=== PATIENT | female | born 1960 | race African-American/Black ===

== ENCOUNTER 2021-01-20 14:07 | Outpatient (CLI) | payer OTHER ==
[2021-01-20 15:19] LABS: Hemoglobin 10.1 g/dL (12.0-15.5); Mean Corpuscular Hemoglobin 28.5 pg (27.0-33.0); Mean Corpuscular Volume 89.3 fl (81.6-98.3); Mean Platelet Volume 12.6 fl (7.4-10.4); Platelet Count 155 10x3/uL (150-450); RBC Distribution Width 14.8 % (11.5-14.5); Red Blood Cell (RBC) Count 3.54 10x6/uL (3.90-5.03); White Blood Cell (WBC) Count 5.5 10x3/uL (3.5-10.5)
[2021-01-20 15:27] LABS: Anion Gap 11 mmol/L (10-20); BUN (Urea Nitrogen) 12 mg/dL (9.8-20.1); Calc. Creatinine Clearance 0 mL/min (70-130); Calcium 9.7 mg/dL (7.8-10.44); Carbon Dioxide 27 mmol/L (23-31); Chloride 100 mmol/L (98-107); Glucose 102 mg/dL (80-115); Sodium 134 mmol/L (136-145)
[2021-01-21 02:23] LABS: SARS-CoV-2 PCR by NAA Not Detected (NotDetected)
== END 2021-01-20 14:08 | disposition home or self-care (01) ==
LOC: LABBT 14:07
PROVIDERS: ATTEND Neurological Surgery
DX: Z01.818 Encounter for other preprocedural examination (principal); S22.009A Unspecified fracture of unspecified thoracic vertebra, initial encounter for closed fracture; S32.009A Unspecified fracture of unspecified lumbar vertebra, initial encounter for closed fracture; M41.9 Scoliosis, unspecified; Z20.822 Contact with and (suspected) exposure to COVID-19
CPT/HCPCS: 80048; 85027; 87635; 93005; 93010; U0003; U0005

== ENCOUNTER 2021-01-25 08:17 | Inpatient (IN) | payer OTHER ==
[2021-01-22 12:29] VITALS: BMI 23.1
[2021-01-25] MEDS ORDERED: Fentanyl 100 MCG/2 ML VIAL ONE ×4 (12:14→15:32)
[2021-01-25] MEDS ORDERED: PHENYLEPHRINE-NS 100 MCG/ML 10 ML SYRINGE ONE (12:55)
[2021-01-25] MEDS ORDERED: Dexamethasone 20 MG/5 ML VIAL ONE (12:55)
[2021-01-25] MEDS ORDERED: Glycopyrrolate 0.2 MG/ML 5 ML SYRINGE ONE (12:55)
[2021-01-25] MEDS ORDERED: Lidocaine 1% PF 5 ML VIAL ONE (12:55)
[2021-01-25] MEDS ORDERED: PROPOFOL 200 MG/20 ML VIAL ONE (12:55)
[2021-01-25] MEDS ORDERED: Ondansetron PF 4 MG/2 ML Vial ONE (12:55)
[2021-01-25] MEDS ORDERED: Rocuronium Bromide 10 MG/ML (10ML VIAL) ONE (12:55)
[2021-01-25] MEDS ORDERED: HYDROmorphone 2 MG/ML VIAL ONE (13:26)
[2021-01-25] MEDS ORDERED: HYDROmorphone 2 MG/ML VIAL SLOW IVP PRN (14:54)
[2021-01-25] MEDS ORDERED: Promethazine HCl 25 MG/ML VIAL IM PRN ×2 (14:54→15:00)
[2021-01-25] MEDS ORDERED: Promethazine HCl 25 MG/ML VIAL SLOW IVP PRN (14:54)
[2021-01-25] MEDS ORDERED: Ondansetron HCl/PF 4 MG/2 ML Vial IVP PRN (14:54)
[2021-01-25] MEDS ORDERED: PACU-Morphine 4MG/ML VIAL SLOW IVP PRN (14:54)
[2021-01-25] MEDS ORDERED: Morphine 2 MG/ML VIAL SLOW IVP PRN (15:00)
[2021-01-25] MEDS ORDERED: diphenhydrAMINE 25 MG CAP PO PRN (15:00)
[2021-01-25] MEDS ORDERED: Morphine 4 MG/ML VIAL SLOW IVP PRN (15:00)
[2021-01-25] MEDS ORDERED: diphenhydrAMINE 50 MG/ML VIAL IVP PRN (15:00)
[2021-01-25] MEDS ORDERED: Milk Of Magnesia 30 ML UDCUP PO PRN (15:00)
[2021-01-25] MEDS ORDERED: Promethazine 25 MG TAB PO PRN (15:00)
[2021-01-25] MEDS ORDERED: HYDROcodone/Acetaminophen 10/325 mg Tablet PO PRN (15:00)
[2021-01-25] MEDS ORDERED: traMADol HCl 50 MG TAB PO PRN ×2 (15:00)
[2021-01-25] MEDS ORDERED: Promethazine HCl 12.5 MG SUPP PR PRN (15:00)
[2021-01-25] MEDS ORDERED: Ondansetron PF 4 MG/2 ML Vial IM PRN (15:00)
[2021-01-25] MEDS ORDERED: Mag-Al 1200 mg/1200 mg/30 ML UDCUP PO PRN (15:00)
[2021-01-25] MEDS: Sodium Chloride 0.9% 1,000 ML IV SCH (17:16)
[2021-01-25] MEDS: HYDROcodone/Acetaminophen 10/325 mg Tablet PO PRN ×2 (17:23→22:00)
[2021-01-25] MEDS: CEFAZOLIN 2 GM in Premix Bag 1 BAG IVPB SCH (19:27)
[2021-01-25] MEDS: tiZANidine HCl 4 MG TAB PO PRN (22:00)
[2021-01-26] MEDS: CEFAZOLIN 2 GM in Premix Bag 1 BAG IVPB SCH ×3 (02:00→17:32)
[2021-01-26] MEDS: Methocarbamol 500 MG TAB PO PRN (04:23)
[2021-01-26] MEDS: HYDROcodone/Acetaminophen 10/325 mg Tablet PO PRN ×4 (04:26→20:04)
[2021-01-26] MEDS: Sodium Chloride 0.9% 1,000 ML IV SCH ×2 (05:20→16:42)
[2021-01-26] MEDS: Lisinopril 20 MG TAB PO SCH (08:23)
[2021-01-26] MEDS: Ferrous Sulfate 325 MG TAB PO SCH (08:23)
[2021-01-26] MEDS ORDERED: Prevnar 13-Val Conj/PF 0.5 ML SYRINGE IM ONE (09:00)
[2021-01-26] MEDS: Methimazole 5 MG TAB PO SCH (09:39)
[2021-01-26] MEDS: tiZANidine HCl 4 MG TAB PO PRN ×2 (11:42→16:56)
[2021-01-27] MEDS: CEFAZOLIN 2 GM in Premix Bag 1 BAG IVPB SCH (00:52)
[2021-01-27] MEDS: Methocarbamol 500 MG TAB PO PRN ×3 (00:53→19:59)
[2021-01-27] MEDS: HYDROcodone/Acetaminophen 10/325 mg Tablet PO PRN ×5 (00:53→20:00)
[2021-01-27] MEDS: tiZANidine HCl 4 MG TAB PO PRN ×2 (05:03→13:47)
[2021-01-27] MEDS: Cephalexin 250 MG CAP PO SCH ×4 (08:13→20:01)
[2021-01-27] MEDS: Ferrous Sulfate 325 MG TAB PO SCH (08:13)
[2021-01-27] MEDS: Lisinopril 20 MG TAB PO SCH (08:14)
[2021-01-27] MEDS: Methimazole 5 MG TAB PO SCH (09:53)
[2021-01-28] MEDS: HYDROcodone/Acetaminophen 10/325 mg Tablet PO PRN ×5 (00:55→21:44)
[2021-01-28] MEDS: tiZANidine HCl 4 MG TAB PO PRN ×3 (00:55→16:45)
[2021-01-28] MEDS: Methocarbamol 500 MG TAB PO PRN ×2 (05:18→21:42)
[2021-01-28] MEDS: Methimazole 5 MG TAB PO SCH (08:46)
[2021-01-28] MEDS: Ferrous Sulfate 325 MG TAB PO SCH (08:47)
[2021-01-28] MEDS: Cephalexin 250 MG CAP PO SCH ×4 (08:47→21:43)
[2021-01-28] MEDS: Lisinopril 20 MG TAB PO SCH (08:48)
[2021-01-28] MEDS ORDERED: Estrogens, Conjugated 30 GM TUBE VAG SCH (21:00)
[2021-01-28] MEDS: Bisacodyl 10 MG SUPP PR SCH (21:49)
[2021-01-29] MEDS: HYDROcodone/Acetaminophen 10/325 mg Tablet PO PRN ×3 (01:42→13:30)
[2021-01-29] MEDS: tiZANidine HCl 4 MG TAB PO PRN ×2 (01:43→09:07)
[2021-01-29] MEDS: Bisacodyl 10 MG SUPP PR SCH ×2 (05:44→13:33)
[2021-01-29] MEDS ORDERED: Polyethylene Glycol 3350 17 GM Packet PO SCH (09:00)
[2021-01-29] MEDS: Cephalexin 250 MG CAP PO SCH ×2 (09:11→13:29)
[2021-01-29] MEDS: Lisinopril 20 MG TAB PO SCH (09:12)
[2021-01-29] MEDS: Ferrous Sulfate 325 MG TAB PO SCH (09:12)
[2021-01-29] MEDS: Methimazole 5 MG TAB PO SCH (09:14)
[2021-01-29] MEDS: Methocarbamol 500 MG TAB PO PRN (13:31)
[2021-01-29 15:31] VITALS: BP 102/67; TEMP 98.6
[2021-01-29 16:15] LABS: Kappa Lambda Light Chain Ratio 0.16 (0.26-1.65); Kappa Light Chains 46.4 mg/L (3.3-19.4); Lambda Light Chain 298.3 mg/L (5.7-26.3)
[2021-01-30 16:13] LABS: Beta-2-Microglobulin 2.1 mg/L (0.6-2.4)
[2021-02-01 12:38] LABS: Albumin-Ur 5.8 % (.); Alpha 1 - Ur 2.2 % (.); Alpha 2 - Ur 5.1 % (.); Beta-Ur 6.5 % (.); Gamma-Ur 80.4 % (.); Protein, Urine 10.6 mg/dL (Not Estab.)
[2021-02-01 12:38] LABS: Alb/Glob Ratio 0.7 (0.7-1.7); Albumin 2.7 g/dL (2.9-4.4); Alpha-1-Globulin 0.3 g/dL (0.0-0.4); Alpha-2-Globulin 0.6 g/dL (0.4-1.0); Beta-Globulin 0.7 g/dL (0.7-1.3); Gamma-Globulin 2.7 g/dL (0.4-1.8); Globulin, Total 4.4 g/dL (2.2-3.9); IgA - Total IgA (Sendout) 11 mg/dL (87-352); Immunoglobulin - G (Sendout) 2880 mg/dL (586-1602); Immunoglobulin - M (Sendout) 16 mg/dL (26-217); M-Spike Note: g/dL (Not Observed)
== END 2021-01-29 15:10 | DRG 457 ==
LOC: SDC 08:17 → T4-B 14:46 → OBSVTOIN 01-26 09:44
PROVIDERS: ADMIT Neurological Surgery; ATTEND Neurological Surgery
PROC: 0SG3071 Fusion of Lumbosacral Joint with Autologous Tissue Substitute, Posterior Approach, Posterior Column, Open Approach (ICD-10-PCS; principal; 2021-01-25)
PROC: 00BY0ZX Excision of Lumbar Spinal Cord, Open Approach, Diagnostic (ICD-10-PCS; 2021-01-25)
PROC: 0SG0071 Fusion of Lumbar Vertebral Joint with Autologous Tissue Substitute, Posterior Approach, Posterior Column, Open Approach (ICD-10-PCS; 2021-01-25)
PROC: 0QB00ZX Excision of Lumbar Vertebra, Open Approach, Diagnostic (ICD-10-PCS; 2021-01-25)
DX: M84.58XA Pathological fracture in neoplastic disease, other specified site, initial encounter for fracture (principal); C90.00 Multiple myeloma not having achieved remission; G95.20 Unspecified cord compression; C90.30 Solitary plasmacytoma not having achieved remission; R33.9 Retention of urine, unspecified; I10 Essential (primary) hypertension; E05.90 Thyrotoxicosis, unspecified without thyrotoxic crisis or storm; Z90.710 Acquired absence of both cervix and uterus; Z80.9 Family history of malignant neoplasm, unspecified; K59.00 Constipation, unspecified; N95.2 Postmenopausal atrophic vaginitis
CPT/HCPCS: 36415; 76000; 82232; 83883; 84155; 84165; 84166; 86334; 88121; 88184; 88304; 88307; 88311; 88331; 88341; 88342; 88365; 88374; 96365; 96372; C1713; G0378; J0690; J1100; J1170; J2405; J2704; J3010; J3370; J3490